=== PATIENT | male | born 1990 | race Caucasian/White ===

== ENCOUNTER 2025-06-10 13:52 | Outpatient (CLI) | payer MEDICAID ==
--- NOTE | 2025-06-10 18:37 | RADIOLOGY REPORT ---
EXAM: MR MRI UPPER EXTREMITY LEFT INDICATION: SOFT TISSUE SWELLING TECHNIQUE: Multisequence, multiplanar MRI of the left wrist was performed in the absence of gadoliniu m contrast material. COMPARISON: None FINDINGS: CARPAL TUNNEL: The traversing flexor tendons are intact. Normal thickness of the overlying flexor ret inaculum. Normal signal intensity and morphology of the median nerve. FLEXOR TENDONS: Intact without tenosynovitis. EXTENSOR TENDONS: Fluid along the 4th extensor compartment.. TRIANGULAR FIBROCARTILAGE: Question trace perforation type tear of the central articular disc of the triangular fibrocartilage complex. EXTRINSIC/INTRINSIC LIGAMENTS: Intact. JOINTS: No joint effusion. No measurable cartilage defect. Small ganglion cysts of the volar radiocar pal joint recess measuring 0.7 cm. BONES: Normal. MUSCLES: Normal. NEUROVASCULAR: Normal signal intensity and morphology of the ulnar nerve at Guyon's canal. The radial neurovascular bundle is intact. OTHER: The surrounding soft tissues are unremarkable. IMPRESSION: 1. Fluid along the 4th extensor compartment. Correlate for tenosynovitis. 2. Flexor tendons are intact without evidence of tenosynovitis. 3. Question trace perforation type tear of the central articular disc of the triangular fibrocartilag e complex 4. Small ganglion cysts of the volar radiocarpal joint recess measuring 0.7 cm.
== END 2025-06-10 23:59 | disposition home or self-care (01) ==
LOC: MRI 13:52
PROVIDERS: ATTEND Nurse Practitioner Family
DX: M67.432 Ganglion, left wrist (principal); M25.532 Pain in left wrist
CPT/HCPCS: 73221